=== PATIENT | male | born 1955 | race Two or more races ===

== ENCOUNTER 2023-09-11 07:06 | Emergency (ER) | payer MEDICARE, SELFPAY ==
--- NOTE | ~2023-09-11 | XR_ITS ---
EXAMINATION: RIGHT ANKLE AND RIGHT FOOT CLINICAL INFORMATION: Pain and swelling COMPARISON: None available. TECHNIQUE: 3 views of the right ankle and 3 views of the right foot FINDINGS: No soft tissue swelling, fractures or dislocations are seen. Mild degenerative changes are seen at the first MTP joint with some narrowing, sclerosis and some lateral osteophyte formation. There is a large plantar calcaneal spur along with heterotopic ossification in the region of the Achilles tendon. No other abnormalities are seen. XR/XR foot RT min 3V IMPRESSION: No acute finding. Degenerative and chronic changes as described above.
--- NOTE | ~2023-09-11 | XR_ITS ---
EXAMINATION: RIGHT ANKLE AND RIGHT FOOT CLINICAL INFORMATION: Pain and swelling COMPARISON: None available. TECHNIQUE: 3 views of the right ankle and 3 views of the right foot FINDINGS: No soft tissue swelling, fractures or dislocations are seen. Mild degenerative changes are seen at the first MTP joint with some narrowing, sclerosis and some lateral osteophyte formation. There is a large plantar calcaneal spur along with heterotopic ossification in the region of the Achilles tendon. No other abnormalities are seen. XR/XR ankle RT min 3V IMPRESSION: No acute finding. Degenerative and chronic changes as described above.
[2023-09-11 07:12] VITALS: BP 103/69; PULSE 66; RESP 16; TEMP 36.4; O2SAT 98; BMI 27.1
--- NOTE | 2023-09-11 07:33 | PC.NURSE ---
Patient comes to ED from home d/t right ankle pain/swelling that worsens with movement/walking x2 weeks. Patient states he rolled his ankle 2 weeks ago and tendons felt tight at time of injury, but over the last 2 weeks ankle is changing color and thought he should get it checked out. Patient rates pain 6/10.
--- NOTE | 2023-09-11 07:35 | ED_ITS ---
HPI - Extremity Problem General Chief complaint: Extremity Problem Stated complaint: R ankle inj Time Seen by Provider: 09/11/23 07:22 Source: patient Mode of arrival: ambulatory Limitations: no limitations History of Present Illness HPI Narrative: 67 year old male with no significant pmhx presents to the ED today for evaluation of right ankle bruising/ swelling x2 weeks. Admits to walking down the stairs to his basement while carrying a box and while stepping down with his right foot, twisted his ankle. He did not fall to the ground. Denies head strike or LOC. Not on thinners. Since this time he has had discomfort to the lateral aspect of the right ankle. His has been massaging the right lower leg/ foot and about 4-5 days ago, he began to notice bruising/ swelling to the lateral aspect of his ankle. He reports pain only when he is ambulating. He has not been taking any over the counter medications for this at home. Denies new injury or trauma. Denies fever, chills, chest pain, sob , hemoptysis, calf tenderness, numbness/ tingling/ weakness to the RLE. Denies recent travel or long car rides. Denies hx of diabetes. Related Data Allergies Allergy/AdvReac Type Severity Reaction Status Date / Time No Known Allergies Allergy Verified 09/11/23 07:16 Review of Systems Review of Systems: Constitutional: No fever, chills, fatigue, night sweats, weight changes ENT/Mouth: No ear pain, hearing loss, nasal congestion, sinus pain, rhinorrhea, sore throat Eyes: No eye pain, swelling, redness, vision changes, discharge Cardio: No chest pain, palpitations, TARANGO, orthopnea, peripheral edema Pulm: No SOB, cough, sputum, wheezing, dyspnea, hemoptysis GI: No nausea, vomiting, hematemesis, abdominal pain, diarrhea, constipation, hematochezia, melena : No irregular bleeding, dysuria, frequency, urgency, hesitancy, hematuria, flank pain, urinary flow changes, urinary incontinence or retention MSK: No back pain, neck pain, joint pain, myalgias, +right foot/ankle bruising Skin: No lesions, rashes Neuro: No weakness, numbness, paresthesias, LOC, dizziness, headache Psych: No anxiety/panic, depression, SI/HI, AH/VH All other systems reviewed and are negative. [facility] Past Medical History Attestation statement: The following information was validated with the patient. Source: old records reviewed and nursing notes reviewed Social History Social History Smoked in Last 30 Days: No Use of substances other than those prescribed or required for medical reasons: No Advance Directives: No Advance Directives Information Provided: No Physical Exam Vital Signs: Vital Signs: Last Vital Signs Temp 98.2 F 09/11/23 09:22 Pulse 55 09/11/23 09:22 Resp 18 09/11/23 09:22 BP 103/72 09/11/23 09:22 Pulse Ox 97 09/11/23 09:22 O2 Del Method Room Air 09/11/23 09:22 BMI result Body Mass Index 27.1 Vital signs stable, afebrile. Const: General: cooperative, healthy appearing, comfortable and no acute distress Orientation/consciousness: patient oriented x3 Limitations: no limitations HEENT: Head: Yes normal to inspection, Yes No palpable skull fracture present, Yes normocephalic and Yes atraumatic Eyes: General: appearance normal, both eyes and all related structures Conjunctivae: conjunctivae normal Sclerae: sclerae normal Pupils: Equal, round and reactive pupils present Neck: Neck: Yes normal visual inspection, Yes full ROM, Yes no lymphadenopathy and Yes no meningeal signs Resp: Effort & Inspection: normal respiratory effort and able to speak in complete sentences Auscultation: clear to auscultation bilaterally Cardio: Rate: regular rate Rhythm: regular rhythm Back/Spine/Pelvis: Other: No midline spinous tenderness or step off deformity. No paraspinal muscle tenderness. Skin: General skin exam: no rashes or lesions noted Neuro: Other: Strength 5/5 intact throughout. No saddle anesthesia. Sensation intact to light touch. Neurovascular intact distally.? General: patient oriented x3 and no meningeal signs Cranial nerves: Yes Equal, round and reactive pupils present Extrem: Other: + ambulating with steady gait. ecchymosi s and edema noted to the right lateral ankle/ lateral malleolus. no overlying skin changes to the medial malleolus. non-tender to palpation. no palpable deformity. 2+ pt/dp pulses bilaterally. negative lake test. no calf tenderness bilaterally. General: Yes normal exam except as noted Course Course Course Narrative: 939-- xrays of right foot/ankle do not demonstrate acute fracture or dislocation. suspicion for ankle sprain/ strain. he is ambulating with steady gait. will apply jani wrap to help with compression and educate on RICE treatment. Patient has remained stable throughout ED visit today. Discussed worrisome signs and symptoms and when to return to the ED. All questions answered at this time. Patient is agreeable with disposition and stable for discharge. Medical Decision Making Medical Decision Making MDM Narrative: 67 year old male with no significant pmhx presents to the ED today for evaluation of right ankle bruising/ swelling x2 weeks. Vital signs stable, afebrile. Patient is nontoxic-appearing and in no acute distress. ambulating with steady gait. ecchymosis and edema noted to the right lateral ankle/ lateral malleolus. no overlying skin changes to the medial malleolus. non-tender to palpation. no palpable deformity. 2+ pt/dp pulses bilaterally. negative lake test. no calf tenderness bilaterally. Differential diagnosis includes contusion, MSK sprain/strain, fracture, dislocation. Unlikely osteomyelitis, foot ulcer, Charcot foot, neurovascular compromise, threat to limb, compartment syndrome. Plan for xrays and pain control. Differential Diagnosis Differential Diagnoses: The differential diagnosis associated with the presentation includes as above. Admission/Observation not indicated. Independent Interpretation I performed an independent interpretation of an: Plain X-Ray Interpretation: I have reviewed x-ray right foot/ankle and agree with radiologist's interpretation Radiology Impression Discussion of test interpretation with radiology: I have reviewed the radiologist's reading. Radiologist Impression: EXAMINATION: RIGHT ANKLE AND RIGHT FOOT CLINICAL INFORMATION: Pain and swelling COMPARISON: None available. TECHNIQUE: 3 views of the right ankle and 3 views of the right foot FINDINGS: No soft tissue swelling, fractures or dislocations are seen. Mild degenerative changes are seen at the first MTP joint with some narrowing, sclerosis and some lateral osteophyte formation. There is a large plantar calcaneal spur along with heterotopic ossification in the region of the Achilles tendon. No other abnormalities are seen. XR/XR foot RT min 3V IMPRESSION: No acute finding. Degenerative and chronic changes as described above. Prescription Management I considered prescription management with: Pain Medication Social Determinants Patient?s care significantly limited by Social Determinants of Health including: Other Social Determinant of Health Procedures Orthopedic Splinting/Casting Injury #1: Side: right Lower Extremity Injury Location: ankle and foot Lower Extremity Immobilizer: Jani wrap Discharge Plan Discharge Clinical Impression: Right ankle sprain Qualifiers: Encounter type: initial encounter Patient Disposition: Home, Self-Care Instructions: Ankle Sprain (ED), How to Use an Elastic Bandage (ED), R.I.C.E. Treatment (ED), Ice Pack Application (ED) Additional Instructions: The x-ray of your right ankle/foot does not demonstrate acute fracture or dislocation. You likely sprained your right ankle. You have been supplied with an Jani wrap today. Use this to help compress the area and help with swelling. Use RICE treatment- rest, ice, compress, and elevate the right leg to help with swelling/ bruising. You may take tylenol or ibuprofen at home for discomfort. If symptoms persist, please follow up with your primary care provider or orthopedic doctor. Please return with new or worsening symptoms. In the case of emergency call 911. Referrals: Physician,Marito J [Primary Care Provider] -
[2023-09-11 07:39] VITALS: BP 131/68; PULSE 62; RESP 18; TEMP 37; O2SAT 98
[2023-09-11 09:22] VITALS: BP 103/72; PULSE 55; RESP 18; TEMP 36.8; O2SAT 97
--- NOTE | 2023-09-11 09:23 | PC.NURSE ---
patient a&ox3, vss, pt c/o rt ankle pain, + csm/pulses, ecchymosis to rt ankle noted, call molina within reach, will continue to monitor
[2023-09-11 09:54] VITALS: BP 103/72; PULSE 55; RESP 18; TEMP 36.8; O2SAT 97
--- NOTE | 2023-09-11 09:54 | PC.NURSE ---
nasra wrap applied, pt tolerated well
== END 2023-09-11 09:54 | disposition home or self-care (01) ==
PROVIDERS: Emergency Provider Emergency Medicine
DX: S93.401A Sprain of unspecified ligament of right ankle, initial encounter (principal); M25.571 Pain in right ankle and joints of right foot; W10.9XXA Fall (on) (from) unspecified stairs and steps, initial encounter; Y93.9 Activity, unspecified; Y92.9 Unspecified place or not applicable; Y99.8 Other external cause status
CPT/HCPCS: 29515; 73610; 73630; 99283; 99284

== ENCOUNTER 2023-11-28 07:01 | Emergency (ER) | payer MEDICARE, SELFPAY ==
--- NOTE | ~2023-11-28 | CT_ITS ---
EXAMINATION: CT GI BLEED ABDOMEN AND PELVIS WITHOUT AND WITH IV CONTRAST CLINICAL INFORMATION: Positive obs. Evaluate GI bleed. COMPARISON: None. TECHNIQUE: Multidetector CT imaging examination of the abdomen and pelvis is performed. Initially, images are obtained without use of intravenous or oral contrast. Then, imaging is repeated in the arterial and venous phases after intravenous administration of 80 mL Omnipaque 350. This CT examination was performed using dose optimization techniques as appropriate, variously including the following: *Automated exposure control *Adjustment of mA and/or kV according to patient size (this includes techniques or standardized protocols for targeted exams where dose is matched to indication/reason for exam; i.e. extremities or head) *Use of iterative reconstruction technique DLP: 1031 mGy-cm. FINDINGS: LUNG BASES: Unremarkable. LIVER, GALLBLADDER, AND BILIARY TREE: The liver has normal size, shape, and attenuation. Small 0.6 cm simple cyst is present in the left lobe. Also, there are a few very small hypodense foci that are likely cysts but are too small for characterization. The gallbladder is grossly normal; no radiopaque gallstones, wall thickening, or pericholecystic fluid. No intrahepatic or extrahepatic bile duct dilatation. PANCREAS: Normal. No evidence of pancreatic mass, edema or ductal dilatation. SPLEEN: Normal. ADRENAL GLANDS: Normal. KIDNEYS AND URETERS: The kidneys have normal size, shape, and attenuation. No hydroureteronephrosis, urolithiasis or perinephric edema. 1.1 cm and 2.8 cm simple cysts of the right kidney. No renal imaging follow-up is recommended for simple cysts. BLADDER: Unremarkable. BOWEL AND PERITONEUM: No dilated bowel loops. No edematous thickening of bowel mesa, mesenteric fat stranding or free fluid. The appendix is normal. There appear to be mild hemorrhoids of the rectum with observation of opacification of veins along the rectal wall on the postcontrast images. However, there is no visible extravasation of contrast into the lumen of the rectum or anal canal. There is no evidence of a mass along bowel mesa. There appear to be a few diverticula of the sigmoid colon. No abdominal free fluid or free air. ABDOMINAL WALL: Unremarkable. LYMPH NODES: No pathologic sized lymph nodes in the abdomen or pelvis. No inguinal lymphadenopathy. VASCULATURE: Abdominal aorta is normal in caliber and its branches are widely patent. Inferior vena cava is normal. PELVIC VISCERA: Unremarkable. MUSCULOSKELETAL: No acute or suspicious osseous abnormality. CT/CT gi bleed abd pel wo/w IVcon IMPRESSION: There appear to be rectal hemorrhoids. However, no CT imaging evidence of an active gastrointestinal bleed. No evidence of enteritis or colitis.
[2023-11-28 07:21] VITALS: BP 115/72; PULSE 66; RESP 18; TEMP 36.8; O2SAT 98; BMI 27.4
--- NOTE | 2023-11-28 07:22 | ED_ITS ---
HPI - General Adult General Chief complaint: Abdominal Pain Stated complaint: Blood in stool, rapid weight loss Time Seen by Provider: 11/28/23 07:21 Source: patient Mode of arrival: ambulatory Limitations: no limitations History of Present Illness ED Provider: REINALDO MILES PA-C HPI narrative: 68 year old male with no significant past medical history presents to the ED today for evaluation of 1 episode of bright red blood per rectum this morning. Patient reports passing a bowel movement this morning and noted bright red blood within the toilet bowl and on toilet paper, prompting him to come in for evaluation. Admits to remote history of external hemorrhoids. He does note a 15 pound weight loss over the last 6 months however states he began eating healthier and trying to lose weight for his wedding. His last colonoscopy was 3 years ago and was normal. Denies fatigue, night sweats, dizziness, chest pain, shortness of breath, syncope. Related Data Previous Rx's ?Medication ?Instructions ?Recorded hydrocortisone acetate 30 mg 30 mg MO BID 2 weeks #12 ea 11/28/23 rectal suppository Allergies Allergy/AdvReac Type Severity Reaction Status Date / Time No Known Allergies Allergy Verified 11/28/23 07:22 Review of Systems 2 Review of Systems: Constitutional: No fever, chills, fatigue, night sweats, weight changes ENT/Mouth: No ear pain, hearing loss, nasal congestion, sinus pain, rhinorrhea, sore throat Eyes: No eye pain, swelling, redness, vision changes, discharge Cardio: No chest pain, palpitations, TARANGO, orthopnea, peripheral edema Pulm: No SOB, cough, sputum, wheezing, dyspnea, hemoptysis GI: No nausea, vomiting, hematemesis, abdominal pain, diarrhea, constipation, hematochezia, melena, +BRBPR : No irregular bleeding, dysuria, frequency, urgency, hesitancy, hematuria, flank pain, urinary flow changes, urinary incontinence or retention MSK: No back pain, neck pain, joint pain, myalgias Skin: No lesions, rashes Neuro: No weakness, numbness, paresthesias, LOC, dizziness, headache Psych: No anxiety/panic, depression, SI/HI, AH/VH All other systems reviewed and are negative. Physical Exam ED Vital Signs: Vital Signs - 24 hr 11/28/23 07:21 11/28/23 08:00 06/18/24 10:00 Temperature 98.2 F 97.2 F 97.2 F Pulse Rate 66 58 58 Respiratory Rate 18 18 18 Blood Pressure 115/72 124/72 124/72 Pulse Oximetry 98 99 99 Oxygen Delivery Method Room Air Room Air Room Air 11/28/23 11:14 Temperature 97.2 F Pulse Rate 52 Respiratory Rate 18 Blood Pressure 118/68 Pulse Oximetry 99 Oxygen Delivery Method Room Air BMI result Body Mass Index 27.4 vss Const General: cooperative, healthy appearing, comfortable and no acute distress Orientation/consciousness: patient oriented x3 Limitations: no limitations HENMT Head: Yes normal to inspection, Yes No palpable skull fracture present, Yes normocephalic and Yes atraumatic Eyes General: appearance normal, both eyes and all related structures Neck Neck: Yes normal visual inspection, Yes full ROM and Yes no lymphadenopathy Resp Effort & Inspection: normal respiratory effort and able to speak in complete sentences Auscultation: clear to auscultation bilaterally Cardio Rate: regular rate Rhythm: regular rhythm GI Other: Rectal exam performed with [facility] tech present in room to hatchery employee. Normal rectal sphincter tone. No external masses or lesions. No palpable hard stool in rectal vault. No palpable internal hemorrhoids. Stool is normal in appearance. Guac positive. Inspection: Yes normal to inspection Palpation (GI): Soft to palpation, nontender, no guarding, not rigid, no masses and No Rebound tenderness present Auscultation: normal bowel sounds Skin General skin exam: no rashes or lesions noted Neuro General: patient oriented x3 and gait normal Course Course Course Narrative: 1055-- CBC without leukocytosis or left shift. Slightly anemic with H&H 13.6/39.3. No priors to compare to. No concern for acute blood loss. Chemistry without acute electrolyte abnormality requiring intervention. BUN slightly elevated to 22, creatinine WNL at 1.08. Patient receiving IV fluids. Normal liver function. Lipase WNL. OBS positive and CT scan ordered to r/o GI bleed. CT showing rectal hemorrhoids without evidence of extravasation. No evidence of mass along bowel mesa. No diverticulitis. I did discuss all work up results with patient. As blood was noted in the toilet bowel and not in the stool, patient likely with bleeding hemorrhoids. No active bleeding at this time. No BRB noted on rectal exam. Will send patient home [facility] hydrocortisone suppositories with general surgery follow up. He is also requesting referral to GI doctor which has been provided to him. Patient has remained stable throughout ED visit today. Discussed worrisome signs and symptoms and when to return to the ED. All questions answered at this time. Patient is agreeable with disposition and stable for discharge. Medications Administered Discontinued Medications Generic Name Dose Route Start Last Admin Trade Name Fredede PRN Reason Stop Dose Admin Sodium Chloride 1,000 mls @ 999 mls/hr 11/28/23 09:15 11/28/23 11:13 Ns IV 11/28/23 10:15 Infused .Q1H1M ISABEL Infusion Iohexol 100 ml 11/28/23 09:44 11/28/23 09:45 Iohexol 350 Mg/Ml 100 Ml Infus..Btl IV 11/28/23 09:45 80 ml ONCE ONE Administration Medical Decision Making Medical Decision Making [facility] Narrative: 68 year old male with no significant past medical history presents to the ED today for evaluation of 1 episode of bright red blood per rectum this morning. vss. nontoxic appearing and in nad. no pallor. abd soft, nd/nt, no rebound or guarding. no palpable masses. normoaticve bs. On FARIHA, normal rectal sphincter tone. No external masses or lesions. No palpable hard stool in rectal vault. No palpable internal hemorrhoids. Stool is normal in appearance. Guac positive. Differential diagnosis includes anemia, electrolyte abnormality, GI bleed, external/ internal hemorrhoids Plan for labs, obs, ct scan, re-evlauation. Differential Diagnosis Differential Diagnoses: The differential diagnosis associated with the presentation includes as above. Admission/Observation Not indicated. Lab Data [facility] Lab Attestation statement: I reviewed the patient's lab results. as above. 11/28/23 07:27 11/28/23 07:27 Labs: Lab Results 11/28/23 11/28/23 Range/Units 07:27 08:52 WBC 3.2 L (4.8-10.8) X10*3/uL RBC 4.46 L (4.60-5.80) X10*6/uL Hgb 13.6 L (14.0-18.0) g/dl Hct 39.3 L (42.0-52.0) % MCV 88.1 (80.0-98.0) fL MCH 30.5 (27.0-33.0) pg MCHC 34.6 (31.0-36.0) g/dl RDW 12.4 (11.0-16.0) % Plt Count 217 (160-400) X10*3/uL MPV 9.2 L (9.4-12.4) fL Immature Gran % (Auto) 0.6 H (0.0-0.4) % Neut % (Auto) 53.1 (45-73) % Lymph % (Auto) 28.3 (20-40) % [place] % (Auto) 13.4 H (2-11) % Eos % (Auto) 3.7 (0-4) % Baso % (Auto) 0.9 (0-2) % Lymph # (Auto) 0.9 L (1.2-4.9) X10*3/uL [place] # (Auto) 0.4 (0.1-1.2) X10*3/uL Eos # (Auto) 0.1 (0.0-0.4) X10*3/uL Baso # (Auto) 0.0 (0.0-0.2) X10*3/uL Abs Immat Gran (auto) 0.02 (0.00-0.03) X10*3/uL Absolute Neuts (auto) 1.7 L (2.0-8.3) x10*3/uL Absolute Nucleated RBC 0.000 (0.0-0.012) X10*3/uL Nucleated RBC % (auto) 0.0 (0.0-0.2) /100WBC PT 11.4 (11.1-13.3) SEC INR 0.9 (0.9-1.1) Sodium 143 (135-145) mmol/L Potassium 4.0 (3.3-5.1) mmol/L Chloride 111 H (96-108) mmol/L Carbon Dioxide 27 (22-29) mmol/L Anion Gap 9 L (12-20) BUN 22 H (9-16) mg/dL Creatinine 1.08 (0.5-1.4) mg/dL Estim Creat Clear Calc 56.3 Estimated GFR > 60 Random Glucose 101 (60-115) mg/dL Calcium 9.0 (8.4-10.2) mg/dL Magnesium 2.1 (1.6-2.6) mg/dL Total Bilirubin 0.3 (0.0-1.0) mg/dL AST 24 (5-37) U/L ALT 23 (0-40) U/L Alkaline Phosphatase 60 (39-117) U/L Total Protein 7.0 (6.5-8.0) g/dL Albumin 3.8 (3.5-5.0) g/dL Lipase 33 (8-78) U/L Stool Occult Blood POSITIVE (NEGATIVE) Independent Interpretation I performed an independent interpretation of an: CT Scan Interpretation: CT abdomen/ pelvis without obvious extravisation, agree with radiologist's interpretation. Radiology Impression Discussion of test interpretation with radiology: I have reviewed the radiologist's reading. Radiologist Impression: EXAMINATION: CT GI BLEED ABDOMEN AND PELVIS WITHOUT AND WITH IV CONTRAST CLINICAL INFORMATION: Positive obs. Evaluate GI bleed. COMPARISON: None. TECHNIQUE: Multidetector CT imaging examination of the abdomen and pelvis is performed. Initially, images are obtained without use of intravenous or oral contrast. Then, imaging is repeated in the arterial and venous phases after intravenous administration of 80 mL Omnipaque 350. This CT examination was performed using dose optimization techniques as appropriate, variously including the following: *Automated exposure control *Adjustment of mA and/or kV according to patient size (this includes techniques or standardized protocols for targeted exams where dose is matched to indication/reason for exam; i.e. extremities or head) *Use of iterative reconstruction technique DLP: 1031 mGy-cm. FINDINGS: LUNG BASES: Unremarkable. LIVER, GALLBLADDER, AND BILIARY TREE: The liver has normal size, shape, and attenuation. Small 0.6 cm simple cyst is present in the left lobe. Also, there are a few very small hypodense foci that are likely cysts but are too small for characterization. The gallbladder is grossly normal; no radiopaque gallstones, wall thickening, or pericholecystic fluid. No intrahepatic or extrahepatic bile duct dilatation. PANCREAS: Normal. No evidence of pancreatic mass, edema or ductal dilatation. SPLEEN: Normal. ADRENAL GLANDS: Normal. KIDNEYS AND URETERS: The kidneys have normal size, shape, and attenuation. No hydroureteronephrosis, urolithiasis or perinephric edema. 1.1 cm and 2.8 cm simple cysts of the right kidney. No renal imaging follow-up is recommended for simple cysts. BLADDER: Unremarkable. BOWEL AND PERITONEUM: No dilated bowel loops. No edematous thickening of bowel mesa, mesenteric fat stranding or free fluid. The appendix is normal. There appear to be mild hemorrhoids of the rectum with observation of opacification of veins along the rectal wall on the postcontrast images. However, there is no visible extravasation of contrast into the lumen of the rectum or anal canal. There is no evidence of a mass along bowel mesa. There appear to be a few diverticula of the sigmoid colon. No abdominal free fluid or free air. ABDOMINAL WALL: Unremarkable. LYMPH NODES: No pathologic sized lymph nodes in the abdomen or pelvis. No inguinal lymphadenopathy. VASCULATURE: Abdominal aorta is normal in caliber and its branches are widely patent. Inferior vena cava is normal. PELVIC VISCERA: Unremarkable. MUSCULOSKELETAL: No acute or suspicious osseous abnormality. CT/CT gi bleed abd pel wo/w IVcon IMPRESSION: There appear to be rectal hemorrhoids. However, no CT imaging evidence of an active gastrointestinal bleed. No evidence of enteritis or colitis. External Record Review External record reviewed: Inpatient record, Office record, Outpatient record, Prior outpatient labs, Prior outpatient radiology, Primary care record and Outside ED record Prescription Management I considered prescription management with: Other (hydrocortisone) Social Determinants Patient?s care significantly limited by Social Determinants of Health including: Other Social Determinant of Health Critical Care Time Critical Care Time Critical Care Time: No Discharge Plan Discharge Clinical Impression: Bright red rectal bleeding, Hemorrhoids Patient Disposition: Home, Self-Care Instructions: Hemorrhoids (ED), Rectal Bleeding (ED) Additional Instructions: Your labs today are reassuring. Your stool did return positive for blood and so CT scan of your abdomen was ordered. CT scan abdomen/pelvis shows rectal hemorrhoids without evidence of acute gastrointestinal bleed. Hydrocortisone suppository has been sent to your pharmacy. Place 1 suppository into your rectum 2 times a day for treatment. You also need to follow up with General surgery. A referral has been provided to you. Call them to make an appointment. They will not call you. A referral to a gastrointestinal doctor has also been provided to you for follow-up. You may call them to make an appointment. They will not call you. Make sure to stick to a high-fiber diet. If you find that you are constipated or straining, you may take stool softener or laxative. Return with new or worsening symptoms. The case of an emergency call 911. Prescriptions: New hydrocortisone acetate 30 mg suppository 30 mg MO BID 14 Days Qty: 12 0RF Referrals: [facility] [place] Gastroenterology Services [Provider Group] [facility] [place] General Surgeons [Provider Group] Alicja Whatley MD [Primary Care Provider] - Interventions: ED Discharge Assessment Last Done: 11/28/23 11:14 Discharge Date/Time: 11/28/23 11:15 Print Language: Czech
--- NOTE | 2023-11-28 07:30 | PC.NURSE ---
a&ox4. vss and up to date. pt presents to the ED w/ 10/19 nonradiating lower abd pain and 2 episodes of bloody stool. pt verbalizes 1 last night and one this morning. bright red/painless blood. pt denies n/v/d/fever/chills/lightheaded/dizziness. 20gIV placed in the right forearm - labs obtained/sent to lab. pt waiting to be seen by ED provider. no sob/wob noted. respirations even/unlabored. plan of care ongoing. call molina placed within reach.
[2023-11-28 07:32] LABS: MANUAL DIFF FLAG NO
[2023-11-28 07:33] LABS: Basophils Percent Auto 0.9 % (0-2); Eosinophils Absolute Auto 0.1 X10*3/uL (0.0-0.4); Eosinophils Percent Auto 3.7 % (0-4); Hematocrit 39.3 % (42.0-52.0); Hemoglobin 13.6 g/dl (14.0-18.0); Imm Gran Abs Auto 0.02 X10*3/uL (0.00-0.03); Imm Gran Pct Auto 0.6 % (0.0-0.4); Lymphocytes Absolute Auto 0.9 X10*3/uL (1.2-4.9); Lymphocytes Percent Auto 28.3 % (20-40); Mean Corpuscular HGB Conc 34.6 g/dl (31.0-36.0); Mean Corpuscular Hemoglobin 30.5 pg (27.0-33.0); Mean Corpuscular Volume 88.1 fL (80.0-98.0); Mean Platelet Volume 9.2 fL (9.4-12.4); Monocytes Absolute Auto 0.4 X10*3/uL (0.1-1.2); Monocytes Percent Auto 13.4 % (2-11); Neutrophils Absolute Auto 1.7 x10*3/uL (2.0-8.3); Neutrophils Percent Auto 53.1 % (45-73); Platelet Count 217 X10*3/uL (160-400); Red Blood Count 4.46 X10*6/uL (4.60-5.80); Red Cell Distribution Width 12.4 % (11.0-16.0); White Blood Count 3.2 X10*3/uL (4.8-10.8)
[2023-11-28 07:38] LABS: INTERNATIONAL NORM RATIO 0.9 (0.9-1.1); Prothrombin Time 11.4 SEC (11.1-13.3)
[2023-11-28 07:54] LABS: Alanine Aminotransferase 23 U/L (0-40); Albumin Level 3.8 g/dL (3.5-5.0); Alkaline Phosphatase 60 U/L (39-117); Anion Gap 9 (12-20); Aspartate Amino Transferase 24 U/L (5-37); Bilirubin Total 0.3 mg/dL (0.0-1.0); Blood Urea Nitrogen 22 mg/dL (9-16); Carbon Dioxide 27 mmol/L (22-29); Chloride 111 mmol/L (96-108); Creatinine Clr Calc Pharmacy 56.3; Estimated Glomerular Filt Rate > 60; Glucose Random 101 mg/dL (60-115); Lipase 33 U/L (8-78); Magnesium 2.1 mg/dL (1.6-2.6); Sodium 143 mmol/L (135-145)
[2023-11-28 08:00] VITALS: BP 124/72; PULSE 58; RESP 18; TEMP 36.2; O2SAT 99
--- NOTE | 2023-11-28 08:53 | PC.NURSE ---
obsx sent to lab at this time.
[2023-11-28 08:58] LABS: OBS Int Ctl Valid YES; OBS1 POSITIVE (NEGATIVE)
[2023-11-28] MEDS: iohexoL 350 MG/ML 100 ML INFUS..BTL IV (09:45)
[2023-11-28] MEDS: 0.9 % Sodium Chloride 1,000 ML 999 ML IV (09:50)
[2023-11-28 10:00] VITALS: BP 124/72; PULSE 58; RESP 18; TEMP 36.2; O2SAT 99
[2023-11-28 11:14] VITALS: BP 118/68; PULSE 52; RESP 18; TEMP 36.2; O2SAT 99
== END 2023-11-28 11:15 | disposition home or self-care (01) ==
PROVIDERS: Physician Assistant Medical; Emergency Provider Emergency Medicine; PCP Internal Medicine
DX: K62.5 Hemorrhage of anus and rectum (principal); K64.8 Other hemorrhoids
CPT/HCPCS: 36415; 74178; 80053; 82272; 83690; 83735; 85025; 85610; 96360; 99285; Q9967

== ENCOUNTER 2023-12-27 14:47 | Outpatient (AMB) | payer MEDICARE, MEDICAID, SELFPAY ==
--- NOTE | 2023-12-27 15:30 | A.OFFVIS_ITS ---
Vital Signs 12/27/23 15:36 Height 5 ft 2 in Intake Visit Reasons: Hemorrhoids Intake Note: This patient presents for an assessment for hemorrhoids. Patient c/o; reports discomfort, reports no pain,reports no rectal bleeding. Public Health Director Required: No Accompanied by: Spouse Allergies No Known Allergies Allergy (Verified 12/27/23 15:39) Medication List - Last Reconciled 12/27/23 by Hector Matta MD hydrocortisone acetate 30 mg MT BID 2 weeks HPI HPI Hemorrhoids: Details: 68-year-old male here for passage of blood per rectum. He says about 3 weeks ago, he had noted small amounts of bright on wiping. He said that this happened on and off for a few days. He denied any pain with bowel movements. He says that he has had no passage of blood per rectum for the past 1 week now He was also concerned that he has lost maybe 9 lb in about 3 months. Denies problems with constipation. He says he has good oral intake. He denies any changes with bowel habits. [facility] Medical History (Updated 12/27/23 @ 15:58 by Hector Matta MD) Bleeding hemorrhoids Surgical History No pertinent past surgical history Family History Other Family history unknown Social History Unable to assess alcohol history related to: Unable to respond Patient Tobacco Use Status: Never used Tobacco Review of Systems Const Denies chills and Denies fever(s) Card Denies chest pain, Denies dyspnea and Denies dyspnea on exertion Resp Denies cough, Denies dyspnea and Denies dyspnea on exertion GI Reports hematochezia and Denies change in bowel habits Denies hematuria and Denies difficulty urinating Musc Denies back pain and Denies limited range of motion Neuro Denies focal weakness and Denies convulsions Psych Denies depression and Denies mood swings Physical Exam Const General: comfortable and no acute distress Orientation/consciousness: patient oriented x3 Neck Neck: Yes no lymphadenopathy Resp Auscultation: clear to auscultation bilaterally Cardio Rhythm: regular rhythm GI Other: Rectal exam - small external hemorrhoids Palpation (GI): Soft to palpation, nontender and no guarding Neuro General: patient oriented x3 Office Procedures Anoscopy He was in francine-knife position. The anoscope was gently inserted. A full examination of the anal canal was done. He did have mixed internal external hemorrhoids on the left and right side. This were moderate-sized. There was no bleeding. There was no induration on digital exam. There were no other lesi ons. As long fissure or ulceration. 14299-Fporpiej Assessment & Plan Assessment & Plan (1) Bleeding hemorrhoids: Code(s): K64.9 - Unspecified hemorrhoids Category: Medical Plan: He had passage of small amounts of bright blood per rectum seen on wiping 3 weeks ago. He has had no episodes for over a week now Examination does reveal internal external hemorrhoids which are the likely cause of his outlet bleeding. I explained this finding to him. He does not seem to require surgery at this time as he has minimal symptoms He is concerned about his weight loss for the past 3 months of about 9 lb. He says he did have a colonoscopy in 2017 in [place]. 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 basis. Coding Level of Care Code New Pt Level 3 (00388) Diagnoses Bleeding hemorrhoids K64.9 CPT Codes Details - CPT: 22076-Hebzraxc ([id number])
== END 2023-12-27 15:57 | disposition home or self-care (01) ==
PROVIDERS: PCP Internal Medicine; Visit Provider Surgery
DX: K64.9 Unspecified hemorrhoids (principal)
CPT/HCPCS: 46600; 99203

== ENCOUNTER → 2023-12-27 14:47 | Outpatient (BNVA) | payer MEDICARE, SELFPAY | PROVIDERS: PCP Internal Medicine; Visit Provider Surgery | DX: K64.9 Unspecified hemorrhoids (principal); R63.4 Abnormal weight loss | CPT/HCPCS: 46600; 99202 ==